=== PATIENT | female | born 1990 | race Two or more races ===

== ENCOUNTER → 2024-06-10 | Outpatient (CLI) | payer MEDICAID ==
[2024-06-10 15:19] LABS: Urine Bacteria MANY /hpf (None Seen); Urine Blood Negative /uL (Negative); Urine Clarity Turbid (Clear); Urine Color Light-Yellow (Yellow); Urine Mucus FEW (None Seen); Urine Protein, UAD TRACE (Negative); Urine Specific Gravity 1.021 (1.001-1.035); Urine Urobilinogen Normal (Negative); Urine WBC 15 /hpf (0 - 5)
== END | disposition home or self-care (01) ==
LOC: LAB 15:02
PROVIDERS: ATTEND Urology
DX: R30.0 Dysuria (principal)
CPT/HCPCS: 81001; 87086